=== PATIENT | male | born 1960 | race Two or more races ===

== ENCOUNTER 2020-12-30 12:06 | Emergency (ER) | payer SELFPAY ==
--- NOTE | 2020-12-30 12:35 | EDM.PDOC ---
ED HPI GENERAL MEDICAL PROBLEM - General Chief Complaint: Cardiovascular Problem Stated Complaint: BLOOD PRESSURE Time Seen by Provider: 12/30/20 12:12 Source of Information: Reports: Patient History Limitations: Reports: No Limitations - History of Present Illness INITIAL COMMENTS - FREE TEXT/NARRATIVE: Patient is a 60-year-old male who was sent in from clinic for evaluation of elevated blood pressure. Patient did mention that he may have had some blurry vision when asked there but on exam was speaking the patient he states he does have any very vision but at times he may need to blink to try to clear things up. Patient does not wear glasses at baseline. Currently on exam denies any neurologic complaints no numbness tingling the extremities. He denies any chest pain nausea vomiting fever chills. He did mention some burning sensation to the right side of his head that he gets occasionally but does not have currently. Patient is currently on lisinopril 40 mg daily. headache Pain Score (Numeric/FACES): 4 - Related Data Allergies Allergy/AdvReac Type Severity Reaction Status Date / Time No Known Allergies Allergy Verified 12/30/20 12:20 Home Meds: Home Meds Famotidine 40 mg PO DAILY 12/30/20 [History] Pantoprazole [ProTONIX] 20 mg PO DAILY 12/30/20 [History] amLODIPine [Norvasc] 5 mg PO DAILY 30 Days #30 tab 12/30/20 [Rx] atorvaSTATin [Lipitor] 20 mg PO DAILY 12/30/20 [History] hydroCHLOROthiazide [Hydrochlorothiazide] 50 mg PO DAILY 12/30/20 [History] lisinopriL [Lisinopril] 40 mg PO DAILY 12/30/20 [History] Past Medical History HEENT History: Reports: None Cardiovascular History: Reports: Hypertension Respiratory History: Reports: None Gastrointestinal History: Reports: None Genitourinary History: Reports: None Musculoskeletal History: Reports: None Neurological History: Reports: None Psychiatric History: Reports: None Endocrine/Metabolic History: Reports: None Hematologic History: Reports: None Immunologic History: Reports: None Oncologic (Cancer) History: Reports: None Dermatologic History: Reports: None - Infectious Disease History Infectious Disease History: Reports: None - Past Surgical History Head Surgeries/Procedures: Reports: None HEENT Surgical History: Reports: None Cardiovascular Surgical History: Reports: None Respiratory Surgical History: Reports: None GI Surgical History: Reports: None Male Surgical History: Reports: None Endocrine Surgical History: Reports: None Neurological Surgical History: Reports: None Musculoskeletal Surgical History: Reports: None Oncologic Surgical History: Reports: None Dermatological Surgical History: Reports: None Social & Family History - Family History Family Medical History: No Pertinent Family History - Tobacco Use Tobacco Use Status *Q: Never Tobacco User - Caffeine Use Caffeine Use: Reports: None - Recreational Drug Use Recreational Drug Use: No ED ROS GENERAL - Review of Systems Review Of Systems: See Below Constitutional: Reports: No Symptoms HEENT: Reports: No Symptoms Respiratory: Reports: No Symptoms Cardiovascular: Reports: No Symptoms Endocrine: Reports: No Symptoms GI/Abdominal: Reports: No Symptoms : Reports: No Symptoms Musculoskeletal: Reports: No Symptoms Skin: Reports: No Symptoms Neurological: Reports: No Symptoms Psychiatric: Reports: No Symptoms Hematologic/Lymphatic: Reports: No Symptoms Immunologic: Reports: No Symptoms ED EXAM, GENERAL - Physical Exam Exam: See Below Exam Limited By: No Limitations General Appearance: Alert, WD/WN, No Apparent Distress Eye Exam: Bilateral Eye: EOMI, PERRL Respiratory/Chest: No Respiratory Distress, Lungs Clear, Normal Breath Sounds Cardiovascular: Normal Peripheral Pulses, Regular Rate, Rhythm GI/Abdominal: Normal Bowel Sounds, Soft, Non-Tender Extremities: Normal Inspection, Normal Range of Motion Neurological: Alert, Oriented, CN II-XII Intact, Normal Cognition, Normal Gait, Normal Reflexes #1 Interpretation EKG Date: 12/30/20 Time: 12:16 Rhythm: NSR Rate (Beats/Min): 60 ST-T: Normal Course - Vital Signs Last Recorded V/S: Last Vital Signs Temp 97.0 F 12/30/20 14:13 Pulse 67 12/30/20 14:13 Resp 14 12/30/20 14:13 BP 140/105 H 12/30/20 14:13 Pulse Ox 94 L 12/30/20 14:13 - Orders/Labs/Meds Orders: Active Orders 24 hr Category Date Time Status EKG Documentation Completion [RC] STAT Care 12/30/20 13:35 Active Labs: Laboratory Tests 12/30/20 12/30/20 12/30/20 Range/Units 12:15 12:15 13:36 WBC 5.63 (4.0-11.0) K/uL RBC 5.87 (4.50-5.90) M/uL Hgb 16.1 (13.0-17.0) g/dL Hct 47.7 (38.0-50.0) % MCV 81.3 (80.0-98.0) fL MCH 27.4 (27.0-32.0) pg MCHC 33.8 (31.0-37.0) g/dL RDW Std Deviation 40.0 (28.0-62.0) fl RDW Coeff of Della 13 (11.0-15.0) % Plt Count 271 (150-400) K/uL MPV 10.40 (7.40-12.00) fL Neut % (Auto) 55.5 (48.0-80.0) % Lymph % (Auto) 32.3 (16.0-40.0) % [place] % (Auto) 8.7 (0.0-15.0) % Eos % (Auto) 2.8 (0.0-7.0) % Baso % (Auto) 0.7 (0.0-1.5) % Neut # (Auto) 3.1 (1.4-5.7) K/uL Lymph # (Auto) 1.8 (0.6-2.4) K/uL [place] # (Auto) 0.5 (0.0-0.8) K/uL Eos # (Auto) 0.2 (0.0-0.7) K/uL Baso # (Auto) 0.0 (0.0-0.1) K/uL Nucleated RBC % 0.0 /100WBC Nucleated RBCs # 0 K/uL Sodium 139 (136-148) mmol/L Potassium 4.3 (3.5-5.1) mmol/L Chloride 103 (98-107) mmol/L Carbon Dioxide 30.1 (21.0-32.0) mmol/L BUN 13 (7.0-18.0) mg/dL Creatinine 0.9 (0.8-1.3) mg/dL Est Cr Clr Drug Dosing 93.41 mL/min Estimated GFR (MDRD) > 60.0 ml/min Glucose 96 (74-106) mg/dL Calcium 9.0 (8.5-10.1) mg/dL Phosphorus 3.3 (2.6-4.7) mg/dL Magnesium 2.3 (1.8-2.4) mg/dL Total Bilirubin 0.5 (0.2-1.0) mg/dL AST 25 (15-37) IU/L ALT 43 (14-63) IU/L Alkaline Phosphatase 92 (46-116) U/L Creatine Kinase 159 (26-308) U/L Troponin I < 0.050 (0.000-0.056) ng/mL Total Protein 7.3 (6.4-8.2) g/dL Albumin 3.7 (3.4-5.0) g/dL Globulin 3.6 (2.6-4.0) g/dL Albumin/Globulin Ratio 1.0 (0.9-1.6) Lipase 102 (73-393) U/L Urine Color YELLOW Urine Appearance SLT CLOUDY Urine pH 8.5 H (5.0-8.0) Ur Specific [place] 1.020 (1.001-1.035) Urine Protein NEGATIVE (NEGATIVE) mg/dL Urine Glucose (UA) NEGATIVE (NEGATIVE) mg/dL Urine Ketones NEGATIVE (NEGATIVE) mg/dL Urine Occult Blood NEGATIVE (NEGATIVE) Urine Nitrite NEGATIVE (NEGATIVE) Urine Bilirubin NEGATIVE (NEGATIVE) Urine Urobilinogen 0.2 (<2.0) EU/dL Ur Leukocyte Esterase NEGATIVE (NEGATIVE) - Re-Assessments/Exams Free Text/Narrative Re-Assessment/Exam: 12/30/20 14:17 Patient continues looks well in ED has no symptoms. Patient blood pressure is 140/105. We spoke to provider to saw patient in walk-in clinic. Patient does not have a status primary care. What we will do is start the patient on amlodipine as well and have him follow-up in primary care clinic. Departure - Departure Time of Disposition: 14:17 Disposition: Home, Self-Care 01 Condition: Good Clinical Impression: Hypertension Prescriptions: amLODIPine [Norvasc] 5 mg PO DAILY 30 Days #30 tab Instructions: Hypertension, Adult, [id number] Referrals: PCP,None [Primary Care Provider] - Forms: ED Department Discharge Additional Instructions: The following information is given to patients seen in the emergency department who are being discharged to home. This information is to outline your options for follow-up care. We provide all patients seen in our emergency department with a follow-up referral. The need for follow-up, as well as the timing and circumstances, are variable depending upon the specifics of your emergency department visit. If you don't have a primary care physician on staff, we will provide you with a referral. We always advise you to contact your personal physician following an emergency department visit to inform them of the circumstance of the visit and for follow-up with them and/or the need for any referrals to a consulting specialist. The emergency department will also refer you to a specialist when appropriate. This referral assures that you have the opportunity for follow-up care with a specialist. All of these measure are taken in an effort to provide you with optimal care, which includes your follow-up. Under all circumstances we always encourage you to contact your private physician who remains a resource for coordinating your care. When calling for follow-up care, please make the office aware that this follow-up is from your recent emergency room visit. If for any reason you are refused follow-up, please contact the [facility] Emergency Department at and asked to speak to the emergency department charge nurse. Please follow up with your primary care physician. If you do not have a primary care physician, see below: [facility] [address] [place] [id number] [facility] [address] [place] [address] You were seen today for elevated blood pressure. We did labs and CAT scan that was within normal limits we also did EKGs and troponins to check the heart. Your blood pressure slightly improved but is elevated. You would likely require a second dose of medication. We have started on a medication called amlodipine that she should take daily. If you start having lightheadedness your blood pressure dropped too low please stop the medication. You would need to find a primary care physician above our 2 numbers you can call to try to establish care. If you have any other concerning signs or symptoms please return to the ED. Lo vieron hoy por presin arterial elevada. Hicimos anlisis de laboratorio y tomografa computarizada que estaba dentro de los lmites normales, tambin hicimos electrocardiogramas y troponinas para revisar el corazn. Cristobal presin arterial mejor levemente tulio est elevada. Es probable que necesite janel segunda dosis de medicamento. Hemos comenzado con un medicamento llamado amlodipino que debe clifford a diario. Si comienza a tener aturdimiento, cristobal presin arterial baj demasiado, deje de clifford el medicamento. Debera encontrar un mdico de atencin primaria por encima de nuestros 2 nmeros a los que puede llamar para tratar de establecer la atencin. Si tiene otros signos o sntomas preocupantes, regrese al servicio de urgencias. Sepsis Event Note (ED) - Evaluation Sepsis Screening Result: No Definite Risk - Focused Exam Vital Signs: Vital Signs Temp Pulse Resp BP Pulse Ox 12/30/20 14:13 97.0 F 67 14 140/105 H 94 L 12/30/20 12:18 97.2 F 61 18 167/107 H 95 - My Orders Last 24 Hours: My Active Orders 12/30/20 13:35 EKG Documentation Completion [RC] STAT - Assessment/Plan Last 24 Hours: My Active Orders 12/30/20 13:35 EKG Documentation Completion [RC] STAT Plan: Is a 58-year-old male presented to clinic for elevated blood pressure. Patient on exam does not have any complaints. Patient blood pressure is 160/100. Patient is already on 40 mg lisinopril. Will obtain labs EKG and patient will likely require additional blood pressure medication. And comes back normal.
--- NOTE | 2020-12-30 13:27 | CT ---
INDICATION: Hypertension, burning sensation on the right side of the face TECHNIQUE: Head CT without contrast. COMPARISON: None FINDINGS: CSF spaces: Within normal limits for age. Brain parenchyma: There are nonspecific low attenuation white matter changes consistent with chronic microvascular disease. No sign of mass, hemorrhage, or midline shift. Skull base and calvarium: The visualized paranasal sinuses and mastoid air cells demonstrate no acute or significant findings. The visualized orbits are grossly unremarkable. No skull fractures. IMPRESSION: 1. No acute findings. 2. Nonspecific white matter disease, typical of chronic microvascular disease. Please note that all CT scans at this facility use dose modulation, iterative reconstruction, and/or weight-based dosing when appropriate to reduce radiation dose to as low as reasonably achievable. Dictated by Lissy Weston MD @ 12/30/2020 1:25:[address] Lissy Weston @ Dec 30 2020 1:25PM
[2020-12-30 13:29] LABS: BLOOD UREA NITROGEN,BUN 13 mg/dL (7.0-18.0); CARBON DIOXIDE,CO2 30.1 mmol/L (21.0-32.0); CHLORIDE,CL 103 mmol/L (98-107); GLUCOSE RANDOM 96 mg/dL (74-106); LIPASE 102 U/L (73-393); POTASSIUM,K 4.3 mmol/L (3.5-5.1); SODIUM,NA 139 mmol/L (136-148)
--- NOTE | 2020-12-30 13:34 | CR ---
INDICATION: Hypertension TECHNIQUE: Chest 2 views. COMPARISON: None FINDINGS: Cardiovascular and mediastinum: Heart size and vasculature are normal in caliber and appearance. Mediastinum is within normal limits. Lungs and pleural spaces: Lungs are clear. No sign of infiltrate or mass. No sign of pleural effusion. No pneumothorax. Bones and soft tissues: No significant findings. IMPRESSION: No sign of acute disease. Dictated by Lissy Weston MD @ 12/30/2020 1:31:[address] Lissy Weston @ Dec 30 2020 1:31PM
== END 2020-12-30 14:33 | disposition home or self-care (01) ==
LOC: MW.ED 12:06
DX: I10 Essential (primary) hypertension (principal); Z79.899 Other long term (current) drug therapy
CPT/HCPCS: 70450; 70450-26; 71046; 71046-26; 80053; 81003; 82550; 83690; 83735; 84100; 84484; 85025; 93005; 99284-25